=== PATIENT | male | born 1995 | race Caucasian/White ===

== ENCOUNTER 2016-08-02 14:35 | Emergency (ER) | payer OTHER ==
[2016-08-02] MEDS ORDERED: levETIRAcetam IV* 1,500 MG in NS 0.9% 100 ML* 100 ML IVPB ONE (14:56)
[2016-08-02] MEDS ORDERED: NS 0.9% 1000 ML* 1,000 ML IV SCH (15:00)
[2016-08-02] MEDS ORDERED: NS 0.9% 100 ML* 100 ML ONE (15:03)
--- NOTE | 2016-08-02 15:45 | RAD ---
HISTORY: Seizure COMPARISONS: None VIEWS:1: Single frontal portable view of the chest at 3:33 PM FINDINGS: LINES AND TUBES: None. CARDIOMEDIASTINAL SILHOUETTE: The cardiomediastinal silhouette is normal for portable technique. PLEURA: The costophrenic angles are sharp. No pleural abnormalities are noted. LUNG PARENCHYMA: The lungs are clear. ABDOMEN: The upper abdomen is clear. There is no subphrenic gas. BONES AND SOFT TISSUES: No bone or soft tissue abnormalities are noted. IMPRESSION: NO ACTIVE CARDIOPULMONARY DISEASE.
--- NOTE | 2016-08-02 15:58 | RAD ---
HISTORY: Seizure COMPARISONS: May 05, 2016 TECHNIQUE: Multiple contiguous axial CT scans were obtained of the head without intravenous contrast. FINDINGS: HEMORRHAGE/INFARCT: There is no hemorrhage or acute infarct. MASSES/SHIFT: There is no mass or shift. EXTRA-AXIAL SPACES: There are no extra-axial fluid collections. SULCI AND VENTRICLES: The sulci and ventricles are normal in size and position for the patient's stated age. CEREBRUM: There is postsurgical encephalomalacia of the left parietal lobe BRAINSTEM: There are no focal parenchymal abnormalities. CEREBELLUM: There are no focal parenchymal abnormalities. VESSELS: The vessels are grossly normal. PARANASAL SINUSES: The paranasal sinuses are clear. ORBITS: The orbits are unremarkable. BONES AND SOFT TISSUE: There is postsurgical change to the left parietal skull OTHER: None IMPRESSION: POST SURGICAL CHANGE. NO ACUTE INTRACRANIAL PATHOLOGY.
[2016-08-02 16:21] LABS: Hematocrit 48 % (42-52); Mean Corpuscular HGB Conc 34 g/dl (31-36); Mean Corpuscular Hemoglobin 27 pg (27-31); Mean Corpuscular Volume 81 fL (80-94); Mean Platelet Volume 7 um3 (7.4-10.4); Red Blood Count 5.86 10^6/ul (4.0-5.4); Red Cell Distribution Width 13 % (10.5-15)
[2016-08-02 16:32] VITALS: BP 122/87
[2016-08-02 16:40] LABS: ALT 19 U/L (7-52); AST 21 U/L (13-39); Albumin 4.1 g/dL (3.2-5.2); Alkaline Phosphatase 99 U/L (34-104); Anion Gap 5 mmol/L (2-11); BUN/Creatinine Ratio 9.5 (8-20); Blood Urea Nitrogen 8 mg/dL (6-24); C Reactive Protein 6.97 mg/L (< 5.00); CO2 Carbon Dioxide 33 mmol/L (22-32); Calcium 9.5 mg/dL (8.6-10.3); Chloride 99 mmol/L (101-111); Creatine Kinase 134 U/L (10-223); EGFR African American 146.9 (>60); EGFR Non-African American 114.3 (>60); Glucose 114 mg/dL (70-100); Lipase 13 U/L (11.0-82.0); Magnesium 2.1 mg/dL (1.9-2.7); Potassium 4.1 mmol/L (3.5-5.0); Sodium 137 mmol/L (133-145); Total Protein 7.1 g/dL (6.4-8.9)
[2016-08-02 16:42] LABS: Troponin I 0.01 ng/mL (<0.04)
[2016-08-02 16:45] LABS: Acetaminophen < 15 mcg/mL; Alcohol < 10 mg/dL (<10)
[2016-08-02 16:56] LABS: TSH (Thyroid Stimulating Horm) 1.33 mcIU/mL (0.34-5.60)
--- NOTE | 2016-08-02 18:14 | ED ---
Rufus Brasher Billy, scribed for Alton Tenorio MD on 08/02/16 at 1458 . Neurological HPI - HPI Summary HPI Summary: Patient is a 20 y/o male with no history of seizures coming to [facility] for evaluation of two witnessed seizures earlier today. EMS reports that the patient had one episode at a carwash. When he awoke, he was disoriented and wandered into incoming traffic. Police officers were able to rescue him, where he was brought to an ambulance. In the ambulance, EMS witnessed him have another seizure. He was given Versed IM 5mg. At this time in the ED, he reports no pain or visual changes. Denies any drugs/alcohol today. Denies any recent illness. He does not recall the events immediate before or after the seizures. Patient had surgery for a brain aneurysm 3 months ago. - History of Current Complaint Chief Complaint: EDSeizure Stated Complaint: SEIZURE Time Seen by Provider: 08/02/16 14:47 Hx Obtained From: Patient Onset/Duration: Sudden Onset Timing: Sudden Onset Seizure Severity: Moderate Neurological Deficit Location: Generalized Seizure Character: Generalized Aggravating: Unknown Alleviating: Unknown - Allergy/Home Medications Allergies/Adverse Reactions: Allergies Allergy/AdvReac Type Severity Reaction Status Date / Time Amoxicillin [From Augmentin] Allergy Intermediate Hives Verified 04/15/16 14:49 Cefaclor [From Ceclor] Allergy Intermediate Hives Verified 04/15/16 14:49 Clavulanic Acid Allergy Intermediate Hives Verified 04/15/16 14:49 [From Augmentin] PMH/Surg Hx/FS Hx/Imm Hx Endocrine/Hematology History: Denies: Hx Diabetes Neurological History: Reports: Other Neuro Impairments/Disorders - brain aneurysm - Surgical History Surgery Procedure, Year, and Place: BRAIN ANEURYSM REPAIR 04/26/16 @ [facility] Infectious Disease History: No Infectious Disease History: Denies: History Other Infectious Disease, Traveled Outside the [place] in Last 30 Days - Family History Known Family History: Positive: Cardiac Disease - Social History Alcohol Use: None Hx Substance Use: No Substance Use Type: Reports: None Hx Tobacco Use: No Smoking Status (MU): Never Smoked Tobacco Review of Systems Negative: Fever Negative: Photophobia, Blurred Vision, Diplopia Negative: Chest Pain Negative: Shortness Of Breath Neurological: Other - seizure Negative: Headache All Other Systems Reviewed And Are Negative: Yes Physical Exam Triage Information Reviewed: Yes Vital Signs On Initial Exam: Initial Vitals Temp Pulse Resp BP Pulse Ox 98.4 F 115 16 124/72 95 08/02/16 14:47 08/02/16 14:47 08/02/16 14:47 08/02/16 14:47 08/02/16 14:47 Vital Signs Reviewed: Yes Appearance: Positive: Well-Appearing, No Pain Distress Skin: Positive: Warm, Skin Color Reflects Adequate Perfusion, Dry Head/Face: Positive: Normal Head/Face Inspection Eyes: Positive: EOMI, TACOS ENT: Positive: Normal ENT inspection Neck: Positive: Supple, Nontender Respiratory/Lung Sounds: Positive: Clear to Auscultation, Breath Sounds Present Cardiovascular: Positive: Tachycardia Abdomen Description: Positive: Nontender, Soft Musculoskeletal: Positive: Normal, Strength/ROM Intact Neurological: Positive: Sensory/Motor Intact, Alert, Oriented to Person Place, Time, Other - post-ictal Psychiatric: Positive: Affect/Mood Appropriate Diagnostics - Vital Signs Vital Signs Temp Pulse Resp BP Pulse Ox 08/02/16 14:47 98.4 F 115 16 124/72 95 - Laboratory Lab Results: Lab Results 08/02/16 08/02/16 08/02/16 Range/Units 16:00 16:00 16:00 WBC 16.0 H (3.5-10.8) 10^3/ul RBC 5.86 H (4.0-5.4) 10^6/ul Hgb 16.0 (14.0-18.0) g/dl Hct 48 (42-52) % MCV 81 (80-94) fL MCH 27 (27-31) pg MCHC 34 (31-36) g/dl RDW 13 (10.5-15) % Plt Count 275 (150-450) 10^3/ul MPV 7 L (7.4-10.4) um3 Neut % (Auto) 78.7 (38-83) % Lymph % (Auto) 10.5 L (25-47) % Sebastian % (Auto) 7.8 (1-9) % Eos % (Auto) 2.6 (0-6) % Baso % (Auto) 0.4 (0-2) % Absolute Neuts (auto) 12.6 H (1.5-7.7) 10^3/ul Absolute Lymphs (auto) 1.7 (1.0-4.8) 10^3/ul Absolute Monos (auto) 1.3 H (0-0.8) 10^3/ul Absolute Eos (auto) 0.4 (0-0.6) 10^3/ul Absolute Basos (auto) 0.1 (0-0.2) 10^3/ul Absolute Nucleated RBC 0.01 10^3/ul Nucleated RBC % 0 INR (Anticoag Therapy) 0.99 (0.89-1.11) APTT 25.3 L (26.0-36.3) seconds Sodium 137 (133-145) mmol/L Potassium 4.1 (3.5-5.0) mmol/L Chloride 99 L (101-111) mmol/L Carbon Dioxide 33 H (22-32) mmol/L Anion Gap 5 (2-11) mmol/L BUN 8 (6-24) mg/dL Creatinine 0.84 (0.67-1.17) mg/dL Est GFR ( Amer) 146.9 (>60) Est GFR (Non-Af Amer) 114.3 (>60) BUN/Creatinine Ratio 9.5 (8-20) Glucose 114 H (70-100) mg/dL Lactic Acid (0.5-2.0) mmol/L Calcium 9.5 (8.6-10.3) mg/dL Magnesium 2.1 (1.9-2.7) mg/dL Total Bilirubin 0.50 (0.2-1.0) mg/dL AST 21 (13-39) U/L ALT 19 (7-52) U/L Alkaline Phosphatase 99 (34-104) U/L Total Creatine Kinase 134 (10-223) U/L CK-MB (CK-2) 1.8 (0.6-6.3) ng/mL Troponin I 0.01 (<0.04) ng/mL C-Reactive Protein 6.97 H (< 5.00) mg/L Total Protein 7.1 (6.4-8.9) g/dL Albumin 4.1 (3.2-5.2) g/dL Globulin 3.0 (2-4) g/dL Albumin/Globulin Ratio 1.4 (1-3) Lipase 13 (11.0-82.0) U/L TSH 1.33 (0.34-5.60) mcIU/mL Acetaminophen < 15 mcg/mL Serum Alcohol < 10 (<10) mg/dL 08/02/16 Range/Units 16:00 WBC (3.5-10.8) 10^3/ul RBC (4.0-5.4) 10^6/ul Hgb (14.0-18.0) g/dl Hct (42-52) % MCV (80-94) fL MCH (27-31) pg MCHC (31-36) g/dl RDW (10.5-15) % Plt Count (150-450) 10^3/ul MPV (7.4-10.4) um3 Neut % (Auto) (38-83) % Lymph % (Auto) (25-47) % Sebastian % (Auto) (1-9) % Eos % (Auto) (0-6) % Baso % (Auto) (0-2) % Absolute Neuts (auto) (1.5-7.7) 10^3/ul Absolute Lymphs (auto) (1.0-4.8) 10^3/ul Absolute Monos (auto) (0-0.8) 10^3/ul Absolute Eos (auto) (0-0.6) 10^3/ul Absolute Basos (auto) (0-0.2) 10^3/ul Absolute Nucleated RBC 10^3/ul Nucleated RBC % INR (Anticoag Therapy) (0.89-1.11) APTT (26.0-36.3) seconds Sodium (133-145) mmol/L Potassium (3.5-5.0) mmol/L Chloride (101-111) mmol/L Carbon Dioxide (22-32) mmol/L Anion Gap (2-11) mmol/L BUN (6-24) mg/dL Creatinine (0.67-1.17) mg/dL Est GFR ( Amer) (>60) Est GFR (Non-Af Amer) (>60) BUN/Creatinine Ratio (8-20) Glucose (70-100) mg/dL Lactic Acid 1.3 (0.5-2.0) mmol/L Calcium (8.6-10.3) mg/dL Magnesium (1.9-2.7) mg/dL Total Bilirubin (0.2-1.0) mg/dL AST (13-39) U/L ALT (7-52) U/L Alkaline Phosphatase (34-104) U/L Total Creatine Kinase (10-223) U/L CK-MB (CK-2) (0.6-6.3) ng/mL Troponin I (<0.04) ng/mL C-Reactive Protein (< 5.00) mg/L Total Protein (6.4-8.9) g/dL Albumin (3.2-5.2) g/dL Globulin (2-4) g/dL Albumin/Globulin Ratio (1-3) Lipase (11.0-82.0) U/L TSH (0.34-5.60) mcIU/mL Acetaminophen mcg/mL Serum Alcohol (<10) mg/dL Result Diagrams: 08/02/16 16:00 08/02/16 16:00 Lab Statement: Any lab studies that have been ordered have been reviewed, and results considered in the medical decision making process. - Radiology CXR Xray Interpretation: No Acute Changes Radiology Interpretation Completed By: Radiologist - CT brain CT Interpretation Completed By: Radiologist - POST SURGICAL CHANGE. NO ACUTE INTRACRANIAL PATHOLOGY. Course/Dx - Course Assessment/Plan: DR HARO SAW IN ED. START KEPPRA 750MG PO BID. DISCHARGE HOME STABLE. - Diagnoses Provider Diagnoses: New onset seizure - Physician Notifications Discussed Care of Patient With: Dr. Haro (neurology) @ [id number]: will see patient in the ED; recommends Keppra IV 1500mg. Discharge - Discharge Plan Condition: Stable Disposition: HOME Patient Education Materials: New-Onset Seizure in Adults (ED) Referrals: Domi Haro MD [Medical Doctor] - No Primary Care Phys,NOPCP [Primary Care Provider] - Additional Instructions: FOLLOW UP WITH NEUROLOGY. START KEPPRA 750MG TWICE A DAY. RETURN TO THE EMERGENCY DEPARTMENT FOR ANY WORSENING OF YOUR CONDITION OR QUESTIONS OR CONCERNS. The documentation as recorded by the Rufus álvarez Billy accurately reflects the service I personally performed and the decisions made by me, Alton Tenorio MD.
--- NOTE | 2016-08-03 00:02 | CONS ---
NEUROLOGY CONSULTATION: DATE OF CONSULT: 08/02/16 LOCATION: The patient is in the emergency department. REQUESTING PHYSICIAN: Dr. Tenorio. REASON FOR CONSULT: New-onset seizure. HISTORY OF PRESENT ILLNESS: Tommy Velez is a 20-year-old man with a history of left parietal AVM, status post hemorrhage and endovascular repair as well as open craniotomy and clipping in April 2016, who presented to the emergency department with a new-onset seizure today. He was at a car wash with a friend washing his car when he recalls seeing white lights in his vision and then does not recall anything else until he was in the emergency department. Apparently, his friend told him that he began leaning against the car and shaking and then eventually fell to the ground and had shaking of his body. When the shaking stopped, he got up and tried to run out into the street. The friend called EMS and en route to the hospital, he had another convulsive seizure. Afterward, he had a headache which has been gradually resolving. He has never had a seizure in the past. He was on Keppra once daily after his surgery, but he is unsure of the dose and this was stopped after approximately 2 months. His AVM was repaired in [place] in April after he had initially presented to this emergency department with a headache and was found to have an intracranial hemorrhage with a CT angiogram that was suspicious for vascular malformation and he was transferred out for further care. PAST MEDICAL HISTORY: Left parietal AVM, status post hemorrhage and repair. HOME MEDICATIONS: None, though the patient reports he is supposed to be on Diamox for reasons that are not entirely clear to me. ALLERGIES: AMOXICILLIN causes hives, CEFACLOR causes hives, AUGMENTIN causes hives. FAMILY HISTORY: There is no family history of seizures or other vascular malformations. SOCIAL HISTORY: He is currently laid off, but does work for a [employer] company. He is currently living at home with his parents. He drinks alcohol occasionally, but denies drinking any significant alcohol recently. He denies any illicit drug use. REVIEW OF SYSTEMS: He has been well otherwise. He denies any recent systemic illnesses or new stressors. PHYSICAL EXAM: Vital Signs: Temperature 98.4, blood pressure 122/87, heart rate 69, and oxygen saturation 95% on room air. On general examination, he is a pleasant gentleman in no acute distress. His heart is in a regular rate and rhythm with no murmurs, rubs, or gallops. Lungs are clear to auscultation bilaterally. There is no oral trauma evident. There are no skin rashes or joint erythema. On neurologic examination, he is a bit sleepy, but wakes easily and participates fully with the exam. He is oriented x3. His speech is fluent without dysarthria or aphasia. On cranial nerve testing, pupils are equal, round, and reactive from 3 to 2 mm bilaterally. Versions are full without nystagmus. Visual colmenares show a small defect in the right inferior quadrant. Facial sensation and musculature are full and symmetric. Hearing is intact to finger rub. Palate elevates symmetrically and the tongue is midline. Shoulder shrug is full and symmetric. On motor testing, he has normal bulk and tone in the upper and lower extremities. Strength is full with no pronator drift. Sensation is intact to light touch in the upper and lower extremities. Finger- to-nose is intact without ataxia. Reflexes are 2+ in the upper and lower extremities with downgoing toes. He was not ambulated in the emergency department. DIAGNOSTIC STUDIES/LAB DATA: Laboratory data reviewed includes a CBC which is notable for a white count of 16 with elevated absolute neutrophil count of 12.6. Chemistry panel is notable for a slightly low chloride of 99, CO2 of 33, and CRP of 6.97. TSH is 1.33. Lactic acid 1.3. Tylenol and alcohol levels were negative. A noncontrast brain CT was obtained and personally reviewed, which shows an area of encephalomalacia in the left parietal lobe as well as postsurgical change and evidence of clips intracranially. IMPRESSION: Tommy Velez is a 20-year-old man who presents with 2 seizures in the setting of a recent left parietal intracranial hemorrhage and subsequently found to have a ruptured AVM which was repaired. He had focal symptoms at the onset of his seizure including vision changes which probably localizes to this area of encephalomalacia. I asked Dr. Tneorio to give him 1500 mg of Keppra IV in the emergency department, which he had received by the time I saw him. At this point, he is essentially back to his baseline and I recommend that he be discharged on levetiracetam 750 mg twice daily. I discussed driving regulations in [facility] with him and his parents, in particular that he is not able to drive for 12 months and should go through the proper channels to report his condition to the DMV, which will result in suspension of the license. He is also aware that [facility] is a nonreporting state on the part of physicians. I discussed seizure safety with him and his parents and asked them to call my office for a followup appointment in approximately 4 to 8 weeks. In addition, I will want to obtain an EEG as an outpatient, but it is not necessary to do that here samy. Thank you for this consultation. [id number]/[facility] #: [id number] RACHELLE
== END 2016-08-02 18:43 | disposition home or self-care (01) ==
LOC: ED 14:35
DX: R56.9 Unspecified convulsions (principal)
CPT/HCPCS: 36415; 70450; 71010; 80053; 80320; 80329; 82550; 82553; 83605; 83690; 83735; 84443; 84484; 85025; 85610; 85730; 86140; 99284; G0480

== ENCOUNTER 2016-12-03 19:26 | Emergency (ER) | payer OTHER ==
[2016-12-03] MEDS ORDERED: NS 0.9% 1000 ML* 1,000 ML BOLUS ONE (21:15)
[2016-12-03] MEDS ORDERED: Acetaminophen TAB* 325 MG PO ONE (21:15)
[2016-12-03] MEDS ORDERED: NS 0.9% 1000 ML* 1,000 ML BOLUS SCH (21:15)
[2016-12-03 21:32] LABS: Hematocrit 48 % (42-52); Hemoglobin 16.3 g/dl (14.0-18.0); Mean Corpuscular HGB Conc 34 g/dl (31-36); Mean Corpuscular Hemoglobin 28 pg (27-31); Mean Corpuscular Volume 83 fL (80-94); Mean Platelet Volume 7 um3 (7.4-10.4); Red Blood Count 5.79 10^6/ul (4.0-5.4); Red Cell Distribution Width 13 % (10.5-15); White Blood Count 17.1 10^3/ul (3.5-10.8)
[2016-12-03 21:47] LABS: ALT 21 U/L (7-52); AST 19 U/L (13-39); Albumin 4.3 g/dL (3.2-5.2); Alkaline Phosphatase 85 U/L (34-104); Anion Gap 8 mmol/L (2-11); BUN/Creatinine Ratio 16.1 (8-20); Blood Urea Nitrogen 14 mg/dL (6-24); CO2 Carbon Dioxide 28 mmol/L (22-32); Calcium 9.3 mg/dL (8.6-10.3); Chloride 100 mmol/L (101-111); Creatine Kinase 76 U/L (10-223); EGFR African American 139.9 (>60); EGFR Non-African American 108.7 (>60); Globulin 2.9 g/dL (2-4); Glucose 117 mg/dL (70-100); Magnesium 1.9 mg/dL (1.9-2.7); Potassium 3.8 mmol/L (3.5-5.0); Sodium 136 mmol/L (133-145); Total Protein 7.2 g/dL (6.4-8.9)
[2016-12-03 21:53] LABS: Urine Bacteria Absent (Absent); Urine Bilirubin Negative (Negative); Urine Glucose Negative (Negative); Urine Nitrite Negative (Negative)
[2016-12-03 22:17] LABS: Alcohol < 10 mg/dL (<10)
[2016-12-03 22:27] LABS: TSH (Thyroid Stimulating Horm) 0.77 mcIU/mL (0.34-5.60)
[2016-12-03 22:42] LABS: Benzodiazepine Urine Screen None Detected (None Detect)
[2016-12-03] MEDS ORDERED: levETIRAcetam TAB* 500 MG PO ONE (23:24)
[2016-12-03 23:36] VITALS: BP 137/74
--- NOTE | 2016-12-04 04:10 | ED ---
Clay Brasher Thomas, scribed for Airam Wahl MD on 12/03/16 at 2017 . Altered Mental Status - HPI Summary HPI Summary: The pt is a 21 y/o M accompanied by parents and presenting to the ED c/o an aura that often appears prior to having a seizure. This aura is described as flashing bright lights. He had intermittent 2-minute episodes of his aura that lasted for 20 minutes before the patient decided to present to the ED. His last seizure was two months ago. As of examination at 20:34, this feeling has resolved and his only complaint is a slight BIRD. Pt additionally c/o nausea ( after taking medications), vomiting (twice), slight BIRD, and photophobia. Pt denies having a seizure today, abd pain, fever, sore throat, weakness, and CP. He normally takes Keppra 750 mg BID. He denies missing any doses. He took Keppra today. 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 Today, after he first saw his aura, he then took Keppra, and then he vomited. He reports that his medication was down at least 20 minutes. He denies being sleep-deprived. He denies recent exposure to sick individuals. He has had two seizures before, once a year ago and once two months ago. PMHx: AVM brain aneurysm. PSHx: brain aneurysm repair (04/26/2016). SHx: no alcohol, no illicit drugs, no tobacco. FHx : CAD. He is not yet back to driving. His neurologist is Dr. Mccann. 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 Last prior seizure was September 2016, . Has only had 2 seizures prior total. - History Of Current Complaint Chief Complaint: EDSeizure Stated Complaint: SEIZURE Time Seen by Provider: 12/03/16 19:52 Hx Obtained From: Patient, Family/Barback - mother and father are present Onset/Duration: Resolved Timing: Intermittent - 2-minute episodes Severity Initially: Mild Severity Currently: None Aggravating Factor(s): Nothing Alleviating Factor(s): Nothing Associated Signs And Symptoms: Positive: Headache. Negative: Seizure - never had a seizure but had auras for 20 minutes Related History: Similar Episode/Diagnosed As: - Similar aura to his 2 previous seizures. - Allergies/Home Medications Allergies/Adverse Reactions: Allergies Allergy/AdvReac Type Severity Reaction Status Date / Time Amoxicillin [From Augmentin] Allergy Intermediate Hives Verified 11/30/16 11:41 Cefaclor [From Ceclor] Allergy Intermediate Hives Verified 11/30/16 11:41 Clavulanic Acid Allergy Intermediate Hives Verified 11/30/16 11:41 [From Augmentin] PMH/Surg Hx/FS Hx/Imm Hx Previously Healthy: No - AVM repaired and seizures Endocrine/Hematology History: Denies: Hx Diabetes Cardiovascular History: Denies: Hx Hypertension, Hx Pacemaker/ICD History: Denies: Hx Renal Disease Sensory History: Denies: Hx Hearing Aid Neurological History: Reports: Hx Seizures, Other Neuro Impairments/Disorders - AVM repair after bleed, Strong Mem Hosp Psychiatric History: Denies: Hx Panic Disorder - Surgical History Surgery Procedure, Year, and Place: BRAIN ANEURYSM REPAIR 04/26/16 @ [facility]- PER OP REPORT - LIQUID APRIL USED - NO CLIPS OR COILS-SUTURE AND BONE FLAP ATTACHMENTS Infectious Disease History: Denies: History Other Infectious Disease, Traveled Outside the [place] in Last 30 Days - Family History Known Family History: Positive: Cardiac Disease - Social History Occupation: Employed Full-time Alcohol Use: None Hx Substance Use: No Substance Use Type: Reports: None Hx Tobacco Use: No Smoking Status (MU): Never Smoked Tobacco Review of Systems Constitutional: Negative Negative: Fever Positive: Photophobia, Other - POS: 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 Negative: Abdominal Pain Genitourinary: Negative Musculoskeletal: Negative Skin: Negative Neurological: Other - POS: aura of flashing lights, intermittent episodes of 2 minutes that lasted 20 minutes Negative: Weakness Psychological: Normal All Other Systems Reviewed And Are Negative: Yes Physical Exam Triage Information Reviewed: Yes Vital Signs On Initial Exam: Initial Vitals Temp Pulse Resp BP Pulse Ox 97.6 F 96 20 139/87 95 12/03/16 19:31 12/03/16 19:31 12/03/16 19:31 12/03/16 19:31 12/03/16 19:31 Vital Signs Reviewed: Yes Appearance: Positive: Well-Appearing, Well-Nourished, Pain Distress - secondary to minor BIRD Skin: Positive: Warm, Skin Color Reflects Adequate Perfusion Head/Face: Positive: Normal Head/Face Inspection Eyes: Positive: Conjunctiva Clear, Other: - Fundi. Discs are sharp and flat. No hemorrhage. ENT: Positive: Normal ENT inspection, Pharynx normal, TMs normal. Negative: Muffled/hoarse voice Neck: Positive: Supple, Nontender, No Lymphadenopathy Respiratory/Lung Sounds: Positive: Clear to Auscultation, Breath Sounds Present , Other - No respiratory distress Cardiovascular: Positive: RRR, Pulses are Symmetrical in both Upper and Lower Extremities, Other - Brisk cap refill. Negative: Rub Abdomen Description: Positive: Nontender, Soft. Negative: CVA Tenderness (R), CVA Tenderness (L), Distended, Guarding, McBurney's Point Tenderness, Peritoneal Signs, Pulsatile Mass Bowel Sounds: Positive: Present Musculoskeletal: Positive: Strength/ROM Intact Neurological: Positive: Sensory/Motor Intact, Alert, Oriented to Person Place, Time, Speech Normal. Negative: Facial Droop, Focal Deficit @, Slurred Speech Psychiatric: Positive: Normal Diagnostics - Vital Signs Vital Signs Temp Pulse Resp BP Pulse Ox 12/03/16 19:31 97.6 F 96 20 139/87 95 - Laboratory Result Diagrams: 12/03/16 21:17 12/03/16 21:17 Lab Statement: Any lab studies that have been ordered have been reviewed, and results considered in the medical decision making process. - EKG 22:54 Cardiac Rate: NL - 84 BPM EKG Rhythm: Sinus Rhythm - nml AV, nml IV conduction time, nmml QTc, nml axis, no acute changes, and no prior EKG. Re-Evaluation - Re-Evaluation First Eval Re-Evaluation Time: 23:15 - no aura, no seizure, discussed labs, wants to go home, parent and pt agreeable Change: Improved Altered Mental Statu Course/Dx - Course Assessment/Plan: The pt is a 21 y/o M accompanied by parents and presenting to the ED c/o an aura that often appears prior to having a seizure. This aura is described as flashing bright lights. He had intermittent 2-minute episodes of his aura that lasted for 20 minutes before the patient decided to present to the ED. His last seizure was two months ago. As of examination at 20:34, this feeling has resolved and his only complaint is a slight BIRD. Pt additionally c/o nausea (after taking medications), vomiting (twice), slight BIRD, and photophobia. Pt denies having a seizure today, abd pain, fever, sore throat, weakness, and CP. He normally takes Keppra 750 mg BID. He denies missing any doses. He took Keppra today. 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 Today, after he first saw his aura, he then took Keppra, and then he vomited. He reports that his medication was down at least 20 minutes. He denies being sleep- deprived. He denies recent exposure to sick individuals. He has had two seizures before, once a year ago and once two months ago. PMHx: AVM brain aneurysm. PSHx: brain aneurysm repair (04/26/2016). SHx: no alcohol, no illicit drugs, no tobacco. FHx: CAD. He is not yet back to driving. His neurologist is Dr. Mccann. 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 An EKG at 22: 53 revealed sinus rhythm at 84 BPM, nml AV, nml IV conduction time, nml QTc, nml axis, no acute changes, and no prior EKG. Patients medication reviewed this visit. Blood pressure noted. Patient is diagnosed with seizure disorder, leukocytosis, and hematuria. Will increase his Keppra to 750mg tid until he is seen by Dr. Mccann his neurologist on Dec 14, 2016. Patient will be discharged and instructed to follow up with his neurologist. Pt is agreeable with this plan. - Diagnoses Differential Diagnosis/HQI/PQRI: Hypoglycemia, Medication Reaction, Seizure Discharge Diagnoses: Seizure disorder, Leukocytosis, Hematuria Discharge - Discharge Plan Condition: Stable Disposition: HOME Prescriptions: levETIRAcetam TAB* [Keppra TAB*] 750 mg PO TID #30 tab Patient Education Materials: Epilepsy (ED), Hematuria (ED), Leukocytosis (ED), Recurrent Seizures in Adults (ED) Referrals: Lee Laguna MD [Primary Care Provider] - 2 Days Domi Mccann MD [Medical Doctor] - 12/14/16 Additional Instructions: Increase your Keppra dose to 750mg three times a day for the next 10 days until you see your neurologist. The keppra level drawn tonight is pending. We will contact you if you need further treatment based on that level. Keep your appointment as scheduled with Dr. Mccann. Your white blood cell count is elevated tonight. It does not need further treatment based on the exam tonight. It may represent a viral infection. There was no indication for antibiotics based on the exam. You also had some microscopic blood in your urine tonight. This does not need emergency evaluation and is probably unrelated to your seizures and does not represent infection. It should be rechecked by your primary care doctor. Return to the ER if you have any new or worsening symptoms. The documentation as recorded by the Clay álvarez Thomas accurately reflects the service I personally performed and the decisions made by , Airam Wahl MD.
== END 2016-12-03 23:50 | disposition home or self-care (01) ==
LOC: ED 19:26
DX: G40.909 Epilepsy, unspecified, not intractable, without status epilepticus (principal); D72.829 Elevated white blood cell count, unspecified; R31.9 Hematuria, unspecified
CPT/HCPCS: 36415; 80053; 80177; 80307; 80320; 81003; 81015; 82550; 83605; 83735; 84443; 85025; 85610; 85730; 87040; 93005; 96360; 99284; A9270-GY; G0480